=== PATIENT | male | born 1930 | race Hispanic/Latino ===

== ENCOUNTER → 2018-11-07 | Outpatient (CLI) | payer MEDICARE ==
[~2018-11-07] MED LIST: DIATR MEGLU/DIATRIZOATE SODIUM 30 ML BOTTLE ONE
== END | disposition home or self-care (01) ==
LOC: RAH 12:43
PROVIDERS: ATTEND Internal Medicine Gastroenterology
DX: K94.20 Gastrostomy complication, unspecified (principal)
CPT/HCPCS: 74018; Q9963 ×2

== ENCOUNTER → 2018-11-28 | Outpatient (CLI) | payer MEDICARE ==
--- NOTE | 2018-11-28 12:40 | NUR ---
MBSS COMPLETED. SHALLOW PENETRATION WITH LARGE CUP SIP. RECOMMEND MECHANICAL SOFT/CHOPPED, THIN LIQUIDS; PILLS WHOLE WITH PUREED TEXTURE. PATIENT INFORMATION: Pt IS AN 88 YEAR OLD MALE REFERRED FOR AN MBSS SECONDARY TO HISTORY OF DYSPHAGIA WITH PEG. Pt AAOX2 AND WAS ACCOMPANIED BY AND CAREGIVER. AND CAREGIVER REPORT THAT Pt HAS BEEN EATING BY MOUTH SINCE DISCHARGE FROM REHABILITATION IN OCTOBER. Pt WAS DISCHARGED WITH PUREED, NECTAR-THICK LIQUID DIET. IN THE LAST 2 WEEKS, THEY HAVE STOPPED GIVING HIM SUPPLEMENTS VIA THE PEG AND HAVE BEGUN FEEDING HIM 100% OF NUTRITION/HYDRATION BY MOUTH WITH MECHANICAL SOFT, THIN LIQUIDS. Pt HAS A PAST MEDICAL HISTORY OF CVA 1999, HYPERTENSION, DIABETES MELLITUS, CARDIAC ISSUES, AND HYPERLIPIDEMIA. Pt SUFFERED A SECOND CVA IN AUGUST 2018 WITH PEG PLACEMENT THEREAFTER. Pt PRESENTS WITH SPARSE DENTITION AT THIS TIME AND DOES NOT USE HIS DENTURES BECAUSE THEY DO NOT FIT HIM. MBSS INTERPRETATIONS: Pt PRESENTS WITH MILD OROPHARYNGEAL DYSPHAGIA CAUSED BY DECREASED LINGUAL RANGE OF MOTION, Pt ABLE TO COMPENSATE FOR MISSING DENTITION, DELAYED PHARYNGEAL RESPONSE TIME, EVIDENCED BY INCREASED MASTICATION TIME, POOLING IN THE VALLECULAE (CLEARED WITH RE-SWALLOW OR LIQUID WASH), RESULTING IN SHALLOW PENETRATION WITH THIN LIQUIDS VIA LARGE CUP SIP (NO COUGH). NO ASPIRATION AT THE TIME OF THE MBSS. TRIALS: 1. TSP PUREED: POOLED IN VALLECULAE (CLEARED WITH RE-SWALLOW) 2. TSP NECTAR-THICK LIQUIDS: GOOD 3. TSP PUDDING: GOOD 4. FRUIT: INCREASED MASTICATION TIME. 5. LARGE CUP SIP THIN LIQUIDS: SHALLOW PENETRATION (SILENT) 6. SMALL THIN LIQUID CUP SIP: GOOD RECOMMENDATIONS: 1. MECHANICAL SOFT/CHOPPED, THIN LIQUIDS; PILLS WHOLE WITH APPLESAUCE. 2. COMPENSATORY STRATEGIES: *SEATED AT 90 *SMALL BITES AND SIPS *NO STRAW SAFE SWALLOW PRECAUTIONS PROVIDED VERBALLY AND VIA WRITTEN MODALITY AT THIS TIME. ALL QUESTIONS ANSWERED. GROUND CONTROL APPROACH TECHNICIAN REVIEWED RESULTS AND RECOMMENDATIONS. THEY VERBALIZED AGREEMENT AND COMPLIANCE WITH RECOMMENDATIONS. G-CODES SWALLOWING: [id number] Addendum: 11/28/18 at 1258 by YAMILETH DAUGHERTY, [facility] Amended: Links added.
== END | disposition home or self-care (01) ==
LOC: RAH 09:34
PROVIDERS: ATTEND Internal Medicine Gastroenterology
DX: R13.12 Dysphagia, oropharyngeal phase (principal); R63.3 Feeding difficulties
CPT/HCPCS: 74230; 92611